=== PATIENT | female | born 1950 | race Caucasian/White ===

== ENCOUNTER 2017-02-25 09:29 | Inpatient (IN) | payer MEDICAID, OTHER ==
[2017-02-25] MEDS ORDERED: NITROGLYCERIN OINT 1 INCH/GM PACKET TOPICAL STA (10:06)
[2017-02-25] MEDS ORDERED: SODIUM CHLORIDE 0.9% 1,000 ML IV STA (10:06)
[2017-02-25] MEDS ORDERED: ASPIRIN 81 MG PO STA (10:06)
[2017-02-25] MEDS ORDERED: MORPHINE SULFATE 2 MG/ML SYRINGE IVP STA (10:06)
[2017-02-25] MEDS ORDERED: ONDANSETRON 4 MG/2 ML VIAL IVP STA (10:07)
[2017-02-25 10:37] LABS: Basophils % (A) 0 %; CH 29.7; CHCM 33.1; Eosinophils % (A) 0 %; HCT 45.1 % (34.0-46.0); HDW 2.39; HGB 14.4 gm/dL (11.4-16.0); Luc # (Auto) 0.09; Luc % (Auto) 1; Lymphocytes # (A) 1.2 k/uL (1.0-4.8); Lymphocytes % (A) 13 %; MCH 28.8 pg (25.0-35.0); MCHC 31.9 g/dL (31.0-37.0); MCV 90.2 fL (80.0-100.0); Mean Platelet Volume 8.7; Monocytes # (A) 0.3 k/uL (0-1.0); Monocytes % (A) 4 %; Neutrophils # (A) 8.2 k/uL (1.3-7.7); Neutrophils % (A) 83 %; RDW 14.2 % (11.5-15.5); WBC 9.9 k/uL (3.8-10.6)
[2017-02-25 10:47] LABS: Anion Gap 16 mmol/L; Calcium 9.6 mg/dL (8.4-10.2); Carbon Dioxide 19 mmol/L (22-30); Chloride 103 mmol/L (98-107); Glucose 140 mg/dL (74-99); Non-African American GFR(MDRD) >60 (>60 ml/min/1.73 sqM); Sodium 138 mmol/L (137-145); Total Protein 8.4 g/dL (6.3-8.2)
[2017-02-25 10:49] LABS: ALT 45 U/L (9-52); AST 43 U/L (14-36); Alkaline Phosphatase 96 U/L (38-126); Blood Urea Nitrogen 15 mg/dL (7-17); Magnesium 1.7 mg/dL (1.6-2.3); Potassium 4.1 mmol/L (3.5-5.1)
[2017-02-25 10:59] LABS: Creatine Kinase 69 U/L (30-135)
[2017-02-25 11:12] LABS: Creatine Kinase MB 1.2 ng/mL (0.0-2.4); Troponin I <0.012 ng/mL (0.000-0.034)
--- NOTE | 2017-02-25 11:36 | XR ---
EXAMINATION TYPE: XR chest 2V DATE OF EXAM: 02/25/2017 HISTORY: Chest Pain. REFERENCE: NONE. FINDINGS: There is a left lower lobe infiltrate. There are bilateral effusions, greater on the left t guaman the right. Heart size is obscured. There are degenerative changes in spine. IMPRESSION: 1. LEFT BASILAR AIRSPACE DISEASE. 2. SMALL, BILATERAL EFFUSIONS, GREATER ON THE LEFT THAN THE RIGHT.
--- NOTE | 2017-02-25 11:49 | ED ---
Chest Pain HPI - General Chief Complaint: Chest Pain Stated Complaint: chest pain; neck pain; nausea Time Seen by Provider: 02/25/17 10:00 Source: patient, family Mode of arrival: wheelchair Limitations: no limitations - History of Present Illness Initial Comments: Female had episode of chest pain this morning, which lasted for about an hour she also felt chest pain gets worse with deep breaths. In feeling very cold she couldn't get warm. Chest and lasted for about an hour she has a prescription of nitros EKG is a nitro that relieved the pain as well as it there were some headache. She been coughing and bringing up some phlegm. Review of system is otherwise unremarkable - Related Data Home Medications Medication Instructions Recorded Confirmed Aspirin EC [Ecotrin Low Dose] 81 mg PO DAILY 02/25/17 02/25/17 Lisinopril [Zestril] 20 mg PO DAILY 02/25/17 02/25/17 Metoprolol Tartrate [Lopressor] 50 mg PO DAILY 02/25/17 02/25/17 Allergies Allergy/AdvReac Type Severity Reaction Status Date / Time No Known Allergies Allergy Verified 02/25/17 12:22 Review of Systems ROS Statement: Those systems with pertinent positive or pertinent negative responses have been documented in the HPI. ROS Other: All systems not noted in ROS Statement are negative. EKG Findings - EKG Comments: EKG Findings:: EKG is a normal sinus rhythm ventricular rate is 67 IA interval is 188 QRS duration is 148 QT/QTc is 484/0 511, EKG reveals a left bundle branch block, I do not have any old EKG to compare with her that this isn't new left bundle branch block were ordered this is a left bundle branch block Past Medical History Past Medical History: Hyperlipidemia, Hypertension History of Any Multi-Drug Resistant Organisms: None Reported Past Surgical History: No Surgical Hx Reported Past Psychological History: No Psychological Hx Reported Smoking Status: Former smoker Past Alcohol Use History: None Reported Past Drug Use History: None Reported General Exam - General Exam Comments Initial Comments: General: The patient is awake and alert, in a bit of distress she is very nauseous she is throwing up Skin: Skin is warm and dry and no rashes or lesions are noted. Eye: Pupils are equal, round and reactive to light, extra-ocular movements are intact; there is normal conjunctiva bilaterally. Ears, nose, mouth and throat: There are moist mucous membranes and no oral lesions. Neck: The neck is supple, there is no tenderness or JVD. Cardiovascular: There is a regular rate and rhythm. No murmur, rub or gallop is appreciated. Respiratory: To auscultation bilateral, as well as crackles at the bases Gastrointestinal: Soft, non-distended, non-tender abdomen without masses or organomegaly noted. There is no rebound or guarding present. Bowel sounds are unremarkable. Back: There is no tenderness to palpation in the midline. There is no obvious deformity. Musculoskeletal: Normal ROM, no tenderness, There is no pedal edema. There is no calf tenderness or swelling. No cords were appreciated. Neurological: CN II-XII intact, Cranial nerves III through XII are intact. There are no obvious motor or sensory deficits. Coordination appears grossly intact. Speech is normal. Psychiatric: Cooperative, appropriate mood & affect, normal judgment. Limitations: no limitations Course Vital Signs 02/25/17 02/25/17 02/25/17 09:33 11:30 12:30 Temperature 97.6 F Pulse Rate 68 62 60 Pulse Rate [ Pulse Oximetery ] Respiratory 20 20 18 Rate Blood Pressure 177/87 140/70 158/76 Blood Pressure [Left Arm] O2 Sat by Pulse 100 99 98 Oximetry 02/25/17 02/25/17 12:50 13:30 Temperature 98.4 F 98.4 F Pulse Rate 66 Pulse Rate [ 64 Pulse Oximetery ] Respiratory 16 18 Rate Blood Pressure 154/72 Blood Pressure 135/76 [Left Arm] O2 Sat by Pulse 98 99 Oximetry Disposition Clinical Impression: Chest pain, Bundle branch block, Pneumonia, Pleural effusion Disposition: ADMITTED IP TO THIS HOSP Condition: Good
[2017-02-25 11:51] LABS: INR 1.1 (<1.2); Partial Thromboplastin Time 23.6 sec (22.0-30.0); Prothrombin Time 11.4 sec (9.0-12.0)
[2017-02-25] MEDS ORDERED: NITROGLYCERIN SL TABS 0.4 MG TAB SUBLINGUAL PRN (11:51)
[2017-02-25] MEDS ORDERED: MORPHINE SULFATE 2 MG/ML SYRINGE IVP PRN (11:51)
[2017-02-25] MEDS ORDERED: HEPARIN SODIUM,PORCINE 5,000 UNIT/ML 1 ML VIAL IV ONE (11:51)
[2017-02-25] MEDS ORDERED: AZITHROMYCIN 500 MG in SODIUM CHLORIDE 0.9% 250 ML IVPB STA (11:52)
[2017-02-25] MEDS ORDERED: cefTRIAXone 2,000 MG in SODIUM CHLORIDE 0.9% 100 ML IVPB STA (11:52)
[2017-02-25] MEDS ORDERED: HEPARIN SODIUM,PORCINE/D5W PMX 25,000 UNIT in DEXTROSE/WATER 1 500ML.BAG IV SCH (12:00)
[2017-02-25] MEDS ORDERED: ACETAMINOPHEN TAB 500 MG TAB PO STA (12:01)
[2017-02-25] MEDS ORDERED: ACETAMINOPHEN TAB 500 MG TAB PO PRN (12:01)
[2017-02-25 14:44] VITALS: BMI 30.9
[2017-02-25 16:58] LABS: Creatine Kinase 46 U/L (30-135)
[2017-02-25 17:11] LABS: Troponin I <0.012 ng/mL (0.000-0.034)
[2017-02-25 17:16] LABS: Creatine Kinase MB 0.8 ng/mL (0.0-2.4)
[2017-02-25] MEDS ORDERED: LORATADINE 10 MG TAB PO PRN (19:07)
[2017-02-25] MEDS ORDERED: NALOXONE 0.4 MG/ML 10 ML VIAL IVP STA (21:26)
[2017-02-25] MEDS ORDERED: NALOXONE 0.4 MG/ML 1 ML VIAL IV STA (21:38)
[2017-02-25 22:38] LABS: Creatine Kinase 52 U/L (30-135)
[2017-02-25 22:50] LABS: Troponin I <0.012 ng/mL (0.000-0.034)
[2017-02-25 22:53] VITALS: TEMP 98
--- NOTE | 2017-02-26 00:30 | CT ---
EXAMINATION TYPE: CT brain wo con DATE OF EXAM: 02/26/2017 COMPARISON: NONE HISTORY: AMS, headache CT DLP: 1202.10 mGycm Automated exposure control for dose reduction was used. FINDINGS: There is extensive high attenuation in the subarachnoid space around the [place] and in the sylvian fissures bilaterally. There is also similar finding around the brainstem in the fourth ventri jami. This is consistent with acute subarachnoid hemorrhage. There is mild enlargement of the ventricl es. There is no midline shift. Calvarium is intact. IMPRESSION: EXTENSIVE ACUTE SUBARACHNOID HEMORRHAGE MOST LIKELY RELATED TO RUPTURED INTRACRANIAL ANEURYSM. MILD HYDROCEPHALUS. CT ANGIOGRAM OF THE BRAIN MIGHT BE HELPFUL FOR FURTHER EVALUATION IF CLINICALLY INDICATED. THIS EXAM WAS DISCUSSED WITH THE FLOOR EXHAUST TENDER AT 12:30 AM.
--- NOTE | 2017-02-26 02:34 | P.HPIM ---
History of Present Illness H&P Date: 02/26/17 Chief Complaint: Chest pain Deja Dumont is a 66-year-old female patient of Dr. Osorio who presented to [facility] emergency room with a chief complaint of chest pain , patient describes an episode of chest pain that lasted about 1 hour patient was also complaining of cough and sputum production she also complained of some headache. She was evaluated in the emergency room and was admitted to telemetry floor, first EKG revealed left bundle branch block first troponin was negative. Chest x-ray revealed evidence of right basilar infiltrates, patient was started on IV Rocephin and IV Zithromax in the emergency room and admitted to telemetry floor. In the emergency room patient was given 1 dose of IV morphine 2 mg and was admitted to the floor. On telemetry floor patient had altered mental status with increased somnolence and unresponsiveness should've this was thought to be related to IV morphine she received a computed tomography scan of the brain was ordered and revealed evidence of extensive acute subarachnoid hemorrhage likely related to ruptured intracranial aneurysm, at that point arrangements for transferring patient to a tertiary care center with neurosurgery ICU. Past Medical History Past Medical History: Hyperlipidemia, Hypertension History of Any Multi-Drug Resistant Organisms: None Reported Past Surgical History: No Surgical Hx Reported Past Psychological History: No Psychological Hx Reported Smoking Status: Former smoker Past Alcohol Use History: None Reported Past Drug Use History: None Reported Medications and Allergies Home Medications Medication Instructions Recorded Confirmed Type Aspirin EC [Ecotrin Low Dose] 81 mg PO DAILY 02/25/17 02/25/17 History Lisinopril [Zestril] 20 mg PO DAILY 02/25/17 02/25/17 History Metoprolol Tartrate [Lopressor] 50 mg PO DAILY 02/25/17 02/25/17 History Allergies Allergy/AdvReac Type Severity Reaction Status Date / Time No Known Allergies Allergy Verified 02/25/17 12:22 Physical Exam Vitals: Vital Signs Temp Pulse Pulse Resp BP BP Pulse Ox 02/25/17 22:53 98.0 F 94 18 142/89 98 02/25/17 20:00 98.0 F 106 H 18 175/91 97 02/25/17 16:34 97.1 F L 81 16 118/59 95 02/25/17 13:30 98.4 F 66 18 154/72 99 02/25/17 12:50 98.4 F 64 16 135/76 98 02/25/17 12:30 60 18 158/76 98 02/25/17 11:30 62 20 140/70 99 02/25/17 09:33 97.6 F 68 20 177/87 100 Intake and Output 02/25/17 02/25/17 02/26/17 14:59 22:59 06:59 Intake Total 410 756.72 Balance 410 756.72 Intake: Intake, IV Titration 410 756.72 Amount Azithromycin 500 mg In 250 Sodium Chloride 0.9% 250 ml @ 125 mls/hr IVPB ONCE STA Rx#:[id number] Heparin Sodium,Porcine/ 60 156.72 D5w Pmx 25,000 unit In Dextrose/Water 1 500ml. bag @ 12 UNITS/KG/HR 19. 59 mls/hr IV .Q24H LEON Rx #:[id number] Sodium Chloride 0.9% 1, 600 000 ml @ 75 mls/hr IV . [id number] STA Rx#:[id number] cefTRIAXone 2,000 mg In 100 Sodium Chloride 0.9% 100 ml @ 100 mls/hr IVPB ONCE STA Rx#:[id number] Other: Voiding Method Toilet Weight 81.647 kg Patient Weight 02/26/17 06:59 Weight 81.647 kg In general at this time patient is awake unresponsive slightly agitated HEENT head normocephalic and atraumatic Neck is supple no JVD no goiter no lymphadenopathy Chest exam reveals a few scattered crackles no wheezing Cardiac exam reveals regular heart sounds no gallops no murmurs Abdomen is soft nontender no organomegaly Extremity exam reveals no edema no cyanosis or clubbing Neurological examination patient is an responsive slightly agitated moving all 4 extremities spontaneously, pupils are round and reactive to light Results CBC & Chem 7: 02/25/17 10:20 02/25/17 10:20 Labs: Abnormal Lab Results - Last 24 Hours (Table) 02/25/17 02/25/17 02/25/17 Range/Units 10:20 10:20 20:14 Neutrophils # 8.2 H (1.3-7.7) k/uL APTT 34.1 H (22.0-30.0) sec Carbon Dioxide 19 L (22-30) mmol/L Glucose 140 H (74-99) mg/dL AST 43 H (14-36) U/L Total Protein 8.4 H (6.3-8.2) g/dL Thrombosis Risk Factor Assmnt - Choose All That Apply Any of the Below Risk Factors Present?: No Assessment and Plan Plan: Assessment and plan #1 episode of chest pain EKG revealing normal sinus rhythm with left bundle branch block, patient was admitted to telemetry floor she was started on chest pain protocol with IV heparin. #2 by basilar infiltrate suggestive of pneumonia patient was started on IV Rocephin and IV Zithromax in the emergency room #3 mental status changes with unresponsiveness, initially attributed to IV morphine in the emergency room, however when this did not improve computed tomography scan of the brain was done and revealed extensive acute subarachnoid hemorrhage. At this point arrangements for transfer to a tertiary care center with neuro ICU capability where initiated.
--- NOTE | 2017-02-26 03:08 | P.HPADDEND ---
H&P Addendum H&P Addendum Date: 02/26/17 Patient was seen and examined again in the intensive care unit, she is alert, speaking asking to get up, she is agitated. Vital exam reveals a blood pressure of 148/90 pulse 70 respirations 16 pulse ox 92% on room air At this time we have been attempting to transfer patient to a tertiary care center We have contacted [facility] however no available beds in ICU We have contacted [facility] and we are on hold waiting approval At the same time we are contacting [facility] and Manuel Serrano and Manuel Britton
[2017-02-26 03:31] LABS: Cholesterol 244 mg/dL (<200); HDL Cholesterol 52 mg/dL (40-60)
[2017-02-26] MEDS ORDERED: PROPOFOL 1,000 MG/100 ML VIAL IV ONE (03:37)
[2017-02-26] MEDS ORDERED: SUCCINYLCHOLINE CHLORIDE 100 MG/5 ML SYR IV ONE ×2 (03:38→03:50)
[2017-02-26] MEDS ORDERED: PROPOFOL 10 MG/ML 20 ML VIAL IV ONE ×2 (03:38→03:50)
[2017-02-26] MEDS ORDERED: MIDAZOLAM 2 MG/2 ML VIAL ONE (03:38)
[2017-02-26] MEDS ORDERED: MIDAZOLAM (PF) 1 MG/ML 5 ML VIAL ONE (03:50)
--- NOTE | 2017-02-26 03:50 | P.HPADDEND ---
H&P Addendum H&P Addendum Date: 02/26/17 Addendum #2 Multiple hospitals are being contacted for possible transfer to ICU Patient was accepted at [facility] neuro ICU Patient is agitated, critical care multimedia editor was contacted and orders were given for intubation and sedation Arrangement for transfer to [facility] are be being currently made
[2017-02-26 03:53] LABS: CH 29.1; CHCM 31.9; HCT 37.1 % (34.0-46.0); HDW 2.63; HGB 12.2 gm/dL (11.4-16.0); MCH 30.1 pg (25.0-35.0); MCHC 32.9 g/dL (31.0-37.0); MCV 91.6 fL (80.0-100.0); Mean Platelet Volume 7.7; RBC 4.05 m/uL (3.80-5.40); RDW 13.3 % (11.5-15.5); WBC 10.6 k/uL (3.8-10.6)
[2017-02-26 03:54] LABS: Anion Gap 11 mmol/L; Blood Urea Nitrogen 16 mg/dL (7-17); Carbon Dioxide 20 mmol/L (22-30); Chloride 105 mmol/L (98-107); Glucose 134 mg/dL (74-99); Magnesium 1.5 mg/dL (1.6-2.3); Non-African American GFR(MDRD) >60 (>60 ml/min/1.73 sqM); Phosphorus 2.7 mg/dL (2.5-4.5); Potassium 3.7 mmol/L (3.5-5.1); Sodium 136 mmol/L (137-145)
[2017-02-26 04:21] LABS: ABG HCO3 23 mmol/L (21-25); ABG PCO2 33 mmHg (35-45); ABG PH 7.45 (7.35-7.45); ABG PO2 348 mmHg (83-108); ABG TCO2 24 mmol/L (19-24)
[2017-02-26 04:22] LABS: ABG Base Excess -0.9 mmol/L
[2017-02-26] MEDS ORDERED: PROPOFOL 1,000 MG/100 ML VIAL IV SCH (04:30)
--- NOTE | 2017-02-26 05:26 | XR ---
EXAM: XR Chest, 1 View CLINICAL HISTORY: Reason: tube placement TECHNIQUE: Frontal view of the chest. COMPARISON: February 25, 2017. FINDINGS: Lungs: Left basilar infiltrate. Low lung volumes. Pleural space: Small left effusion. No pneumothorax. Heart: Unremarkable. No cardiomegaly. Mediastinum: Unremarkable. Bones/joints: Unremarkable. Tubes, lines and devices: The distal tip of ET tube is located above the daph[place]. IMPRESSION: Tip of ET tube above daphney.
[2017-02-26 05:44] VITALS: BP 120/73; PULSE 73; RESP 22
[2017-02-26] MEDS ORDERED: NON-FORMULARY DRUG (Aspirin Ec 81 MG) PO SCH (09:00)
[2017-02-26] MEDS ORDERED: ASPIRIN 325 MG TAB PO SCH (09:00)
[2017-02-26] MEDS ORDERED: METOPROLOL TARTRATE 50 MG TAB PO SCH (09:00)
[2017-02-26] MEDS ORDERED: LISINOPRIL 20 MG TAB PO SCH (09:00)
== END 2017-02-26 06:15 | disposition short-term general hospital (02) | DRG 64 ==
LOC: EC 09:29 → 6SEL 12:01 → 6ICU 02-26 03:15
PROVIDERS: ADMIT Internal Medicine; ATTEND Internal Medicine
DX: I60.9 Nontraumatic subarachnoid hemorrhage, unspecified (principal); J18.9 Pneumonia, unspecified organism; J90 Pleural effusion, not elsewhere classified; E78.5 Hyperlipidemia, unspecified; I10 Essential (primary) hypertension; I44.7 Left bundle-branch block, unspecified; Z79.82 Long term (current) use of aspirin; Z79.899 Other long term (current) drug therapy; Z87.891 Personal history of nicotine dependence
CPT/HCPCS: 36415; 36600; 70450; 71010; 71020; 80048; 80053; 80061; 82550; 82553; 82805; 83735; 84100; 84484; 85025; 85027; 85379; 85610; 85730; 93005; 94002; 96361; 96374; 96375; 99285